=== PATIENT | male | born 1960 | race Caucasian/White ===

== ENCOUNTER → 2024-01-31 12:34 | Outpatient (REF) | payer BC, SELFPAY | LOC: RAD 12:34 | PROVIDERS: ATTENDING PHYSICIAN Specialist; REFERRING PHYSICIAN Family Medicine | DX: N20.0 Calculus of kidney (principal) | CPT/HCPCS: 74018 ==

== ENCOUNTER → 2025-02-05 11:26 | Outpatient (REF) | payer BC, SELFPAY | LOC: RAD 11:26 | PROVIDERS: ATTENDING PHYSICIAN Specialist | DX: N20.0 Calculus of kidney (principal) | CPT/HCPCS: 74018 ==